=== PATIENT | female | born 1970 | race Caucasian/White ===

== ENCOUNTER 2017-10-01 12:51 | Emergency (ER) | payer OTHER ==
--- NOTE | 2017-10-01 13:24 | EDM.PDOC ---
ED HPI GENERAL MEDICAL PROBLEM - General Chief Complaint: Lower Extremity Injury/Pain Stated Complaint: RIGHT KNEE/LEFT ANKLE AND FOOT INJURY Time Seen by Provider: 10/01/17 13:09 Source of Information: Reports: Patient History Limitations: Reports: No Limitations - History of Present Illness INITIAL COMMENTS - FREE TEXT/NARRATIVE: Patient is a 46-year-old female presents ED complaining of left ankle and right knee pain. Patient states while walking her right knee gave out. This caused her to fall and she twisted her left ankle. She landed on top of her left ankle. There is swelling noted to the lateral malleolus. Increasing pain with palpation and weightbearing. In relation to the right knee pain. Pain is anterior with some mild swelling present as well. There is also pain with ambulation. Patient required assistance with ambulation to the car. She has a history of recent injury to both extremities approximately 1 year ago. Patient at that time was ambulating and her right knee gave out. She twisted her ankle at that time too. She had MRI of the right knee which revealed minor meniscus tear. She had full recovery to the left ankle sprain. Participated in PT up until December 2016 for her knee. Since then she's continues to walk 3 times a day. There's been no issues. Currently pain is localized. Minimal numbness and tingling to the left toes. She did not hit her head, lose conscious, nor does she complain of any neck or back pain. Right Knee Pain Score (Numeric/FACES): 8 Left Ankle Pain Score (Numeric/FACES): 8 - Related Data Allergies Allergy/AdvReac Type Severity Reaction Status Date / Time Sulfa (Sulfonamide Allergy Rash Verified 10/01/17 13:05 Antibiotics) Home Meds: Home Meds Cholecalciferol (Vitamin D3) [Vitamin D3] 1,000 unit PO DAILY 10/01/17 [History] Gabapentin [Neurontin] 400 mg PO DAILY 10/01/17 [History] Iron 18 mg PO DAILY 10/01/17 [History] LORazepam [Ativan] 0.5 mg PO Q6HR PRN 10/01/17 [History] Levothyroxine [Synthroid] 50 mcg PO DAILY 10/01/17 [History] PARoxetine HCl [Paxil] 20 mg PO DAILY 10/01/17 [History] buPROPion [Wellbutrin] 100 mg PO DAILY 10/01/17 [History] busPIRone [Buspar] 10 mg PO DAILY 10/01/17 [History] Past Medical History - Past Surgical History HEENT Surgical History: Reports: Tonsillectomy Social & Family History - Tobacco Use Smoking Status *Q: Unknown Ever Smoked Review of Systems - Review of Systems Review Of Systems: ROS reveals no pertinent complaints other than HPI. ED EXAM, GENERAL - Physical Exam Exam: See Below Exam Limited By: No Limitations General Appearance: Alert, WD/WN, No Apparent Distress Ears: Hearing Grossly Normal Nose: Normal Inspection Throat/Mouth: Normal Voice, No Airway Compromise Neck: Normal Inspection, Supple Respiratory/Chest: No Respiratory Distress, Lungs Clear, Normal Breath Sounds, No Accessory Muscle Use Cardiovascular: Normal Peripheral Pulses, Regular Rate, Rhythm Peripheral Pulses: 3+: Posterior Tibial (L), Posterior Tibial (R) Extremities: Other (Right knee: Pain noted to the lateral aspect of the right knee. Mild bruising, abrasion, and swelling present. Decreased range of motion noted with provocative testing. No pain with palpation of the medial and lateral joint space. No discomfort noted with palpation of the right hip, leg, lower leg, ankle, foot, or toes. Left ankle: Swelling noted to the lateral malleolus with increasing pain on palpation of both the lateral and the medial malleolus. Decreased range of motion noted secondary to pain. Some faint numbness to the toes. No pain to the proximal fibula, knee, upper leg, or hip. ) Neurological: Alert, Oriented, CN II-XII Intact, No Motor/Sensory Deficits Course - Vital Signs Last Recorded V/S: Last Vital Signs Temp 98.5 F 10/01/17 13:09 Pulse 79 10/01/17 14:08 Resp 18 10/01/17 14:08 BP 112/85 10/01/17 14:08 Pulse Ox 100 10/01/17 14:08 - Orders/Labs/Meds Orders: Active Orders 24 hr Category Date Time Status Ankle Min 3V Lt [CR] Stat Exams 10/01/17 13:19 Taken Knee 3V Rt [CR] Stat Exams 10/01/17 13:19 Taken - Re-Assessments/Exams Free Text/Narrative Re-Assessment/Exam: X-ray of the right knee and left ankle be obtained. Impression right knee and left ankle reviewed with Dr. Arshad with no acute bony abnormalities noted. Final interpretation is pending. Shared results with the patient. Will place patient in short leg knee immobilizer and walking boot. Patient refuses crutches. States she has a few at home. Will get patient up walking. If unable.Crutches will be sent with patient. Discharge instructions as documented. Departure - Departure Time of Disposition: 13:51 Disposition: Home, Self-Care 01 Condition: Good Clinical Impression: Sprain of knee Qualifiers: Encounter type: initial encounter Involved ligament of knee: unspecified ligament Laterality: right Qualified Code(s): S83.91XA - Sprain of unspecified site of right knee, initial encounter Left ankle sprain Qualifiers: Encounter type: initial encounter Involved ligament of ankle: unspecified ligament Qualified Code(s): S93.402A - Sprain of unspecified ligament of left ankle, initial encounter Contusion of knee, left Qualifiers: Encounter type: initial encounter Qualified Code(s): S80.02XA - Contusion of left knee, initial encounter - Discharge Information Instructions: Crutch Use, Adult, [id number], Ankle Sprain, [id number], Knee Sprain, Adult, [id number], How to Use a Knee Immobilizer, [id number], Walking Boot, Adult Referrals: PCP,Not In Area [Primary Care Provider] - Forms: ED Department Discharge Additional Instructions: Elevate when able to reduce any swelling and pain. Take Tylenol and ibuprofen and alternate fashion for pain. Utilize ice 3-4 times daily, 30 minutes in duration, do not apply directly on the skin. Call and make an appointment to see orthopedic surgeon of your choice when she returned home for further evaluation and treatment. Refrain from any activities that cause worsening pain. Return to the ED if you should develop any new or worsening symptoms. - My Orders Last 24 Hours: My Active Orders 10/01/17 13:19 Ankle Min 3V Lt [CR] Stat Knee 3V Rt [CR] Stat - Assessment/Plan Last 24 Hours: My Active Orders 10/01/17 13:19 Ankle Min 3V Lt [CR] Stat Knee 3V Rt [CR] Stat
--- NOTE | 2017-10-05 07:19 | CR ---
Left ankle: Four views of the left ankle were obtained. Comparison: No prior ankle study. Soft tissue swelling is identified. Ankle mortise is symmetric. Plantar spur is seen. No acute fracture or other bony abnormality is identified. Impression: 1. Soft tissue swelling. Plantar spur. 2. No acute bony abnormality is seen. Diagnostic code #2
--- NOTE | 2017-10-05 07:22 | CR ---
Right knee: AP, lateral and sunrise patellar views of the right knee were obtained. Comparison: No prior knee exam. Mild lateral joint space narrowing is seen. Lateral osteophyte is noted off the tibia. Minimal osteophyte noted off the patella. Patellofemoral joint appears within normal limits. No fracture or other bony abnormality is identified. Impression: 1. Mild degenerative change. 2. Nothing acute is seen on three-view right knee exam. Diagnostic code #2
== END 2017-10-01 14:07 | disposition home or self-care (01) ==
LOC: JD.ED 12:51
DX: S83.91XA Sprain of unspecified site of right knee, initial encounter (principal); S93.402A Sprain of unspecified ligament of left ankle, initial encounter; S80.02XA Contusion of left knee, initial encounter; Z88.2 Allergy status to sulfonamides; Z79.899 Other long term (current) drug therapy; W19.XXXA Unspecified fall, initial encounter
CPT/HCPCS: 73562-26-RT; 73562-RT; 73610-26-LT; 73610-LT; 99283